=== PATIENT | male | born 1945 | race Caucasian/White ===

== ENCOUNTER 2017-08-18 06:43 | Inpatient (IN) | payer MEDICARE, OTHER ==
[~2017-08-18] VITALS: Ht 177.8 cm; Wt 107.2 kg
[~2017-08-18 06:43] MED LIST: AMLO5 PO; ASPI81CH PO; BENAML10/2 PO; BENAML10/5 PO; BISO5 PO; Bystolic20 MG PO; CARV6.25 PO; CHLO25B PO; CLON.1 PO; HYDCHL12.5 PO; HYDCHL25 PO; HYDRA25 PO; LEVSOD100 PO; LOSA50 PO; LOSARTAN POTAS100 MG PO; LOSHYD100 PO; METO50 PO; NEBI10 PO; NEBI5 PO; NITR.6SL SL; OMEP20ER PO; QUIN10 PO; SULTRIDS PO; VALS80 PO
[2017-08-18 07:12] LABS: BASOPHILS ABSOLUTE AUTO 0.02 K/mm3 (0.00-0.23); BASOPHILS PERCENT AUTO 0 % (0-2); EOSINOPHILS ABSOLUTE AUTO 0.17 K/mm3 (0.00-0.68); EOSINOPHILS PERCENT AUTO 3 % (0-6); Hematocrit 42.7 % (37.0-53.0); Hemoglobin 14.7 g/dL (13.5-17.5); IMMATURE GRAN ABSOLUTE AUTO 0.01 K/mm3 (0.00-0.10); IMMATURE GRAN PERCENT AUTO 0 % (0-1); LYMPHOCYTES ABSOLUTE AUTO 3.57 K/mm3 (0.84-5.20); LYMPHOCYTES PERCENT AUTO 52 % (21-46); MONOCYTES ABSOLUTE AUTO 0.77 K/mm3 (0.16-1.47); MONOCYTES PERCENT AUTO 11 % (4-13); Mean Corpuscular HGB 33.4 pg (26.0-34.0); Mean Corpuscular HGB Conc 34.4 g/dL (31.5-36.5); Mean Corpuscular Volume 97 fL (80-100); Mean Platelet Volume 11.1 fL (9.1-12.4); NEUTROPHILS ABSOLUTE AUTO 2.39 K/mm3 (1.96-9.15); NEUTROPHILS PERCENT AUTO 35 % (41-73); Platelet Count 171 K/mm3 (150-400); RDW Coefficient Variation 13.5 % (11.7-14.2); RDW Standard Deviation 48.6 fL (35.1-46.3); White Blood Cell Count 6.93 K/mm3 (4.00-11.30)
[2017-08-18 07:34] LABS: Alanine Aminotransfer (ALT/SGP 68 U/L (12-78); Albumin, Blood 4.2 g/dL (3.4-5.0); Alk Phos 48 U/L (50-136); Anion Gap 8 mmol/L (6-16); Aspartate Aminotrans (AST/SGOT 32 U/L (12-37); Bilirubin, Total 0.4 mg/dL (0.1-1.0); Blood Urea Nitrogen 32 mg/dL (8-24); Bun/Creatinine Ratio 26.7 (12.0-20.0); CO2, Blood 26 mmol/L (21-32); Calcium, Blood 9.2 mg/dL (8.5-10.1); Chloride, Blood 105 mmol/L (98-108); Globulin, Blood 4.2 g/dL (2.2-4.0); Glomerular Filtration Rate >60 (60-); Glucose, Blood 125 mg/dL (70-99); Potassium, Blood 3.6 mmol/L (3.5-5.5); Sodium, Blood 139 mmol/L (136-145); Total Protein, Blood 8.4 g/dL (6.4-8.2); Troponin I <0.015 ng/mL (0.000-0.040)
[2017-08-18 07:45] LABS: Calcium, Ionized (POC) 1.15 mmol/L (1.10-1.46); Chloride (POC) 104 mmol/L (98-108); Creatinine (POC) 1.3 mg/dL (0.8-1.3); Glucose (ISTAT POC) 120 mg/dL (70-99); Hemoglobin (POC) 13.6 g/dL (13.5-17.5); Potassium (POC) 3.6 mmol/L (3.5-5.5); Sodium (POC) 142 mmol/L (135-148); Total CO2 (POC) 23 mmol/L (21-32)
[2017-08-18] MEDS ORDERED: UBIQUINOL100 MG PO (16:13)
[2017-08-18] MEDS ORDERED: FISH OIL 1,0001 EAC1 PO (16:13)
[2017-08-18] MEDS ORDERED: ERGO400 PO (16:16)
[2017-08-18] MEDS ORDERED: MEN 50 PLUS MU1 EACH PO (16:17)
[2017-08-19 02:47] LABS: BASOPHILS ABSOLUTE AUTO 0.02 K/mm3 (0.00-0.23); BASOPHILS PERCENT AUTO 0 % (0-2); EOSINOPHILS ABSOLUTE AUTO 0.14 K/mm3 (0.00-0.68); EOSINOPHILS PERCENT AUTO 2 % (0-6); Hematocrit 42.5 % (37.0-53.0); Hemoglobin 14.3 g/dL (13.5-17.5); IMMATURE GRAN ABSOLUTE AUTO 0.01 K/mm3 (0.00-0.10); IMMATURE GRAN PERCENT AUTO 0 % (0-1); LYMPHOCYTES PERCENT AUTO 50 % (21-46); MONOCYTES ABSOLUTE AUTO 0.81 K/mm3 (0.16-1.47); MONOCYTES PERCENT AUTO 14 % (4-13); Mean Corpuscular HGB Conc 33.6 g/dL (31.5-36.5); Mean Corpuscular Volume 98 fL (80-100); Mean Platelet Volume 10.5 fL (9.1-12.4); NEUTROPHILS ABSOLUTE AUTO 1.96 K/mm3 (1.96-9.15); NEUTROPHILS PERCENT AUTO 34 % (41-73); Platelet Count 156 K/mm3 (150-400); RDW Coefficient Variation 13.6 % (11.7-14.2); Red Blood Cell Count 4.33 M/mm3 (4.30-5.90); White Blood Cell Count 5.84 K/mm3 (4.00-11.30)
[2017-08-19 03:02] LABS: Anion Gap 7 mmol/L (6-16); Blood Urea Nitrogen 33 mg/dL (8-24); Bun/Creatinine Ratio 31.7 (12.0-20.0); CO2, Blood 26 mmol/L (21-32); Calcium, Blood 8.7 mg/dL (8.5-10.1); Chloride, Blood 109 mmol/L (98-108); Creatinine, Blood 1.04 mg/dL (0.60-1.20); Glomerular Filtration Rate >60 (60-); Glucose, Blood 130 mg/dL (70-99); Potassium, Blood 3.7 mmol/L (3.5-5.5); Sodium, Blood 142 mmol/L (136-145)
[2018-07-14] MEDS ORDERED: TORSE20 PO (03:19)
[2018-07-14] MEDS ORDERED: SPIR25 PO (03:19)
[2018-07-14] MEDS ORDERED: Prednisone20 MG PO (04:16)
== END 2017-08-19 16:11 | disposition home or self-care (01) | DRG 313 ==
LOC: ER 06:43 → ERHOLD 06:44 → MEDS 14:37
PROVIDERS: Emergency Medicine; Family Medicine
DX: R07.89 Other chest pain (principal); I25.10 Atherosclerotic heart disease of native coronary artery without angina pectoris; E03.9 Hypothyroidism, unspecified; I10 Essential (primary) hypertension; I25.2 Old myocardial infarction; E29.1 Testicular hypofunction; K27.9 Peptic ulcer, site unspecified, unspecified as acute or chronic, without hemorrhage or perforation; E66.9 Obesity, unspecified; Z68.32 Body mass index [BMI] 32.0-32.9, adult; R01.1 Cardiac murmur, unspecified; Z95.1 Presence of aortocoronary bypass graft; Z95.2 Presence of prosthetic heart valve; Z79.82 Long term (current) use of aspirin; Z79.899 Other long term (current) drug therapy
CPT/HCPCS: 36415; 71046; 71275; 74175; 76705; 80047; 80048; 80053; 82947; 83690; 84484; 85014; 85025; 85651; 93005; 93010; 94660; 94762; 96374; 96375; 99285; J1170; J1650; J2270; J2405; Q9967

== ENCOUNTER 2018-04-09 04:19 | Emergency (ER) | payer MEDICARE, OTHER ==
[~2018-04-09] VITALS: Ht 175.3 cm; Wt 102.1 kg
[~2018-04-09 04:19] MED LIST changes: +ERGO400 PO; +FISH OIL 1,0001 EAC1 PO; +MEN 50 PLUS MU1 EACH PO; +UBIQUINOL100 MG PO
[2018-04-09] MEDS ORDERED: CHOL10002 PO (04:38)
[2018-04-09 05:10] LABS: BASOPHILS ABSOLUTE AUTO 0.05 K/mm3 (0.00-0.23); BASOPHILS PERCENT AUTO 1 % (0-2); EOSINOPHILS PERCENT AUTO 3 % (0-6); Hematocrit 43.6 % (37.0-53.0); Hemoglobin 14.8 g/dL (13.5-17.5); IMMATURE GRAN ABSOLUTE AUTO 0.02 K/mm3 (0.00-0.10); IMMATURE GRAN PERCENT AUTO 0 % (0-1); LYMPHOCYTES ABSOLUTE AUTO 2.55 K/mm3 (0.84-5.20); LYMPHOCYTES PERCENT AUTO 42 % (21-46); MONOCYTES ABSOLUTE AUTO 0.64 K/mm3 (0.16-1.47); MONOCYTES PERCENT AUTO 11 % (4-13); Mean Corpuscular HGB 33.3 pg (26.0-34.0); Mean Corpuscular HGB Conc 33.9 g/dL (31.5-36.5); Mean Corpuscular Volume 98 fL (80-100); Mean Platelet Volume 11.4 fL (9.1-12.4); NEUTROPHILS ABSOLUTE AUTO 2.57 K/mm3 (1.96-9.15); NEUTROPHILS PERCENT AUTO 43 % (41-73); Platelet Count 154 K/mm3 (150-400); RDW Coefficient Variation 13.7 % (11.7-14.2); RDW Standard Deviation 49.1 fL (35.1-46.3); Red Blood Cell Count 4.45 M/mm3 (4.30-5.90); White Blood Cell Count 6.03 K/mm3 (4.00-11.30)
[2018-04-09 05:25] LABS: Alanine Aminotransfer (ALT/SGP 64 U/L (12-78); Albumin, Blood 3.9 g/dL (3.4-5.0); Alk Phos 47 U/L (50-136); Anion Gap 11 mmol/L (6-16); Aspartate Aminotrans (AST/SGOT 30 U/L (12-37); Bilirubin, Total 0.3 mg/dL (0.1-1.0); Blood Urea Nitrogen 16 mg/dL (8-24); Bun/Creatinine Ratio 20.7 (12.0-20.0); CO2, Blood 23 mmol/L (21-32); Calcium, Blood 8.6 mg/dL (8.5-10.1); Chloride, Blood 107 mmol/L (98-108); Creatinine, Blood 0.77 mg/dL (0.60-1.20); Glomerular Filtration Rate >60 (60-); Glucose, Blood 129 mg/dL (70-99); Potassium, Blood 3.8 mmol/L (3.5-5.5); Sodium, Blood 141 mmol/L (136-145); Total Protein, Blood 7.9 g/dL (6.4-8.2); Troponin I 0.022 ng/mL (0.000-0.040)
[2018-04-09 05:26] LABS: International Normalized Ratio 1.01; Prothrombin Time Results 10.4 Sec (9.7-11.5)
== END 2018-04-09 06:30 | disposition home or self-care (01) ==
LOC: ER 04:19
PROVIDERS: Emergency Medicine
DX: I49.1 Atrial premature depolarization (principal); I10 Essential (primary) hypertension; Z88.8 Allergy status to other drugs, medicaments and biological substances; Z88.1 Allergy status to other antibiotic agents; Z88.0 Allergy status to penicillin; Z79.899 Other long term (current) drug therapy
CPT/HCPCS: 71046; 80053; 83880; 84484; 85025; 85610; 85730; 93005; 93010; 99285-25

== ENCOUNTER 2018-12-03 18:31 | Emergency (ER) | payer MEDICARE, OTHER ==
[~2018-12-03] VITALS: Ht 175.3 cm; Wt 104.3 kg
[~2018-12-03 18:31] MED LIST changes: +CHOL10002 PO; +Prednisone20 MG PO; +SPIR25 PO; +TORSE20 PO
[2018-12-03] MEDS ORDERED: CHLO25B PO (18:50)
[2018-12-03 19:12] LABS: BASOPHILS ABSOLUTE AUTO 0.05 K/mm3 (0.00-0.23); BASOPHILS PERCENT AUTO 1 % (0-2); EOSINOPHILS ABSOLUTE AUTO 0.14 K/mm3 (0.00-0.68); EOSINOPHILS PERCENT AUTO 2 % (0-6); Hematocrit 41.3 % (37.0-53.0); Hemoglobin 13.9 g/dL (13.5-17.5); IMMATURE GRAN ABSOLUTE AUTO 0.02 K/mm3 (0.00-0.10); IMMATURE GRAN PERCENT AUTO 0 % (0-1); LYMPHOCYTES ABSOLUTE AUTO 2.56 K/mm3 (0.84-5.20); LYMPHOCYTES PERCENT AUTO 35 % (21-46); MONOCYTES ABSOLUTE AUTO 0.62 K/mm3 (0.16-1.47); MONOCYTES PERCENT AUTO 9 % (4-13); Mean Corpuscular HGB 33.4 pg (26.0-34.0); Mean Corpuscular HGB Conc 33.7 g/dL (31.5-36.5); Mean Corpuscular Volume 99 fL (80-100); Mean Platelet Volume 11.6 fL (9.1-12.4); NEUTROPHILS ABSOLUTE AUTO 3.85 K/mm3 (1.96-9.15); NEUTROPHILS PERCENT AUTO 53 % (41-73); Platelet Count 176 K/mm3 (150-400); RDW Standard Deviation 51.1 fL (35.1-46.3); Red Blood Cell Count 4.16 M/mm3 (4.30-5.90); White Blood Cell Count 7.24 K/mm3 (4.00-11.30)
[2018-12-03 19:49] LABS: Alanine Aminotransfer (ALT/SGP 29 U/L (12-78); Albumin, Blood 4.1 g/dL (3.4-5.0); Albumin/Globulin Ratio 1.1 (0.8-1.8); Alk Phos 44 U/L (50-136); Anion Gap 4 mmol/L (6-16); Aspartate Aminotrans (AST/SGOT 23 U/L (12-37); Bilirubin, Total 0.4 mg/dL (0.1-1.0); Blood Urea Nitrogen 14 mg/dL (8-24); Bun/Creatinine Ratio 18.8 (12.0-20.0); CO2, Blood 28 mmol/L (21-32); Calcium, Blood 8.8 mg/dL (8.5-10.1); Chloride, Blood 108 mmol/L (98-108); Creatinine, Blood 0.74 mg/dL (0.60-1.20); Globulin, Blood 3.7 g/dL (2.2-4.0); Glomerular Filtration Rate >60 (60-); Glucose, Blood 178 mg/dL (70-99); Potassium, Blood 3.6 mmol/L (3.5-5.5); Sodium, Blood 140 mmol/L (136-145); Total Protein, Blood 7.8 g/dL (6.4-8.2)
[2018-12-03 19:54] LABS: Source, Urine Clean Catch
[2018-12-03 20:07] LABS: Bilirubin, Urine Neg (Neg); Blood, Urine 2+ (Neg); Glucose Qualitative, Urine Neg (Neg); Ketones, Urine Neg (Neg); Leukocyte Esterase, Urine Neg (Neg); Nitrite, Urine Neg (Neg); Protein, Urine Neg (Neg); Urobilinogen, Urine NORM (Normal)
[2018-12-03 20:10] LABS: Appearance, Urine Clear (Clear); Color, Urine Yellow (P-Yellow)
[2018-12-03 20:17] LABS: Bacteria Few /hpf; Red Blood Cells, Urine 0-2 /hpf (0-2); Squamous Epithelial Cells Not Seen /hpf (Few); White Blood Cells, Urine 0-2 /hpf (0-5)
[2018-12-03] MEDS ORDERED: Magnesium Citr296 ML PO (23:40)
== END 2018-12-04 | disposition home or self-care (01) ==
LOC: ER 18:31
PROVIDERS: Emergency Medicine
DX: K59.00 Constipation, unspecified (principal); Z88.0 Allergy status to penicillin; Z88.8 Allergy status to other drugs, medicaments and biological substances; Z88.1 Allergy status to other antibiotic agents; Z79.899 Other long term (current) drug therapy; I10 Essential (primary) hypertension; I25.2 Old myocardial infarction
CPT/HCPCS: 36415; 74177; 80053; 81001; 83690; 85025; 96361; 96374-59; 96375; 99284-25; J1885; J3010; J7030; Q9967

== ENCOUNTER 2019-01-01 13:43 | Day surgery (SDC) | payer MEDICARE, OTHER ==
[~2019-01-01] VITALS: Ht 175.3 cm; Wt 107.0 kg
[~2019-01-01 13:43] MED LIST changes: +Magnesium Citr296 ML PO
== END 2019-01-01 17:25 | disposition home or self-care (01) ==
LOC: ORSCSDS 13:43
PROVIDERS: Internal Medicine Gastroenterology
PROC: 0DBL8ZX Excision of Transverse Colon, Via Natural or Artificial Opening Endoscopic, Diagnostic (ICD-10-PCS; principal; 2019-01-01 15:00)
PROC: 0DB68ZX Excision of Stomach, Via Natural or Artificial Opening Endoscopic, Diagnostic (ICD-10-PCS; principal; 2019-01-01 15:00)
PROC: 0D758ZZ Dilation of Esophagus, Via Natural or Artificial Opening Endoscopic (ICD-10-PCS; principal; 2019-01-01 15:00)
DX: R19.4 Change in bowel habit (principal); R10.31 Right lower quadrant pain; K25.9 Gastric ulcer, unspecified as acute or chronic, without hemorrhage or perforation; K31.7 Polyp of stomach and duodenum; D12.3 Benign neoplasm of transverse colon; R13.14 Dysphagia, pharyngoesophageal phase; K57.30 Diverticulosis of large intestine without perforation or abscess without bleeding; K64.8 Other hemorrhoids; K22.2 Esophageal obstruction; K44.9 Diaphragmatic hernia without obstruction or gangrene; G47.33 Obstructive sleep apnea (adult) (pediatric); K75.81 Nonalcoholic steatohepatitis (NASH); I12.9 Hypertensive chronic kidney disease with stage 1 through stage 4 chronic kidney disease, or unspecified chronic kidney disease; N18.9 Chronic kidney disease, unspecified; E03.9 Hypothyroidism, unspecified; E66.01 Morbid (severe) obesity due to excess calories; Z68.36 Body mass index [BMI] 36.0-36.9, adult; Z79.899 Other long term (current) drug therapy
CPT/HCPCS: 82947; 88305; J2704; J7120

== ENCOUNTER 2019-08-15 09:25 | Day surgery (SDC) | payer MEDICARE, OTHER ==
[~2019-08-15] VITALS: Ht 177.8 cm; Wt 98.0 kg
== END 2019-08-15 11:00 | disposition home or self-care (01) ==
LOC: ORSCSDS 09:25
PROVIDERS: Internal Medicine Gastroenterology
PROC: 0DB98ZX Excision of Duodenum, Via Natural or Artificial Opening Endoscopic, Diagnostic (ICD-10-PCS; principal; 2019-08-15 10:45)
PROC: 0DB48ZX Excision of Esophagogastric Junction, Via Natural or Artificial Opening Endoscopic, Diagnostic (ICD-10-PCS; principal; 2019-08-15 10:45)
PROC: 0DB68ZX Excision of Stomach, Via Natural or Artificial Opening Endoscopic, Diagnostic (ICD-10-PCS; principal; 2019-08-15 10:45)
PROC: 0D757ZZ Dilation of Esophagus, Via Natural or Artificial Opening (ICD-10-PCS; principal; 2019-08-15 10:45)
DX: R93.3 Abnormal findings on diagnostic imaging of other parts of digestive tract (principal); K29.70 Gastritis, unspecified, without bleeding; K21.9 Gastro-esophageal reflux disease without esophagitis; R10.84 Generalized abdominal pain; K22.2 Esophageal obstruction; K44.9 Diaphragmatic hernia without obstruction or gangrene; I12.9 Hypertensive chronic kidney disease with stage 1 through stage 4 chronic kidney disease, or unspecified chronic kidney disease; E11.22 Type 2 diabetes mellitus with diabetic chronic kidney disease; N18.9 Chronic kidney disease, unspecified; I25.10 Atherosclerotic heart disease of native coronary artery without angina pectoris; G47.33 Obstructive sleep apnea (adult) (pediatric); Z79.899 Other long term (current) drug therapy
CPT/HCPCS: 88305; 88342; J2704; J7120

== ENCOUNTER → 2019-12-11 | Outpatient (CLI) | payer MEDICARE, OTHER ==
[2019-12-11 16:56] LABS: BASOPHILS ABSOLUTE AUTO 0.02 K/mm3 (0.00-0.23); BASOPHILS PERCENT AUTO 0 % (0-2); EOSINOPHILS ABSOLUTE AUTO 0.04 K/mm3 (0.00-0.68); EOSINOPHILS PERCENT AUTO 0 % (0-6); Hematocrit 41.1 % (37.0-53.0); IMMATURE GRAN ABSOLUTE AUTO 0.05 K/mm3 (0.00-0.10); IMMATURE GRAN PERCENT AUTO 0 % (0-1); LYMPHOCYTES ABSOLUTE AUTO 1.53 K/mm3 (0.84-5.20); LYMPHOCYTES PERCENT AUTO 14 % (21-46); MONOCYTES ABSOLUTE AUTO 1.46 K/mm3 (0.16-1.47); MONOCYTES PERCENT AUTO 13 % (4-13); Mean Corpuscular HGB 33.1 pg (26.0-34.0); Mean Corpuscular HGB Conc 34.1 g/dL (31.5-36.5); Mean Corpuscular Volume 97 fL (80-100); Mean Platelet Volume 12.3 fL (9.1-12.4); NEUTROPHILS ABSOLUTE AUTO 8.02 K/mm3 (1.96-9.15); NEUTROPHILS PERCENT AUTO 72 % (41-73); Platelet Count 156 K/mm3 (150-400); RDW Coefficient Variation 12.9 % (11.7-14.2); Red Blood Cell Count 4.23 M/mm3 (4.30-5.90); White Blood Cell Count 11.12 K/mm3 (4.00-11.30)
[2019-12-11 17:10] LABS: Anion Gap 7 mmol/L (6-16); Blood Urea Nitrogen 16 mg/dL (8-24); Bun/Creatinine Ratio 18.6 (12.0-20.0); CO2, Blood 22 mmol/L (21-32); Calcium, Blood 8.4 mg/dL (8.5-10.1); Chloride, Blood 106 mmol/L (98-108); Creatinine, Blood 0.86 mg/dL (0.60-1.20); Glomerular Filtration Rate >60 (60-); Glucose, Blood 107 mg/dL (70-99); Sodium, Blood 135 mmol/L (136-145)
== END | disposition home or self-care (01) ==
LOC: LAB SHORT 16:41 → LAB 16:41
PROVIDERS: Physician Assistant
DX: R50.9 Fever, unspecified (principal); R31.9 Hematuria, unspecified
CPT/HCPCS: 80048; 85025; 87086

== ENCOUNTER → 2021-04-08 | Outpatient (CLI) | payer MEDICARE, OTHER | LOC: LAB SHORT 12:27 | DX: R21 Rash and other nonspecific skin eruption (principal); D48.5 Neoplasm of uncertain behavior of skin | CPT/HCPCS: 88342 ==

== ENCOUNTER 2022-05-26 07:45 | Day surgery (SDC) | payer MEDICARE, OTHER ==
[~2022-05-26] VITALS: Ht 175.3 cm; Wt 93.9 kg
[2022-05-26] MEDS ORDERED: LEVSOD100 (08:05)
--- NOTE | 2022-05-26 09:00 | NUR ---
05/26/22 0900 Maria M Osullivan [facility] # [id number]
== END 2022-05-26 10:15 | disposition home or self-care (01) ==
LOC: ORSCSDS 07:45
PROVIDERS: Internal Medicine Gastroenterology
PROC: 0DBK8ZX Excision of Ascending Colon, Via Natural or Artificial Opening Endoscopic, Diagnostic (ICD-10-PCS; principal; 2022-05-26 09:00)
PROC: 0DBM8ZX Excision of Descending Colon, Via Natural or Artificial Opening Endoscopic, Diagnostic (ICD-10-PCS; principal; 2022-05-26 09:00)
PROC: 0DBL8ZX Excision of Transverse Colon, Via Natural or Artificial Opening Endoscopic, Diagnostic (ICD-10-PCS; principal; 2022-05-26 09:00)
PROC: 0DJ08ZZ Inspection of Upper Intestinal Tract, Via Natural or Artificial Opening Endoscopic (ICD-10-PCS; principal; 2022-05-26 09:00)
PROC: 0DBN8ZX Excision of Sigmoid Colon, Via Natural or Artificial Opening Endoscopic, Diagnostic (ICD-10-PCS; principal; 2022-05-26 09:00)
DX: R10.9 Unspecified abdominal pain (principal); Z86.010 Personal history of colon polyps; D12.2 Benign neoplasm of ascending colon; D12.3 Benign neoplasm of transverse colon; D12.4 Benign neoplasm of descending colon; K64.4 Residual hemorrhoidal skin tags; E11.22 Type 2 diabetes mellitus with diabetic chronic kidney disease; I12.9 Hypertensive chronic kidney disease with stage 1 through stage 4 chronic kidney disease, or unspecified chronic kidney disease; N18.9 Chronic kidney disease, unspecified; K76.0 Fatty (change of) liver, not elsewhere classified; E03.9 Hypothyroidism, unspecified; E29.1 Testicular hypofunction; G47.33 Obstructive sleep apnea (adult) (pediatric); I25.10 Atherosclerotic heart disease of native coronary artery without angina pectoris; Z95.2 Presence of prosthetic heart valve; Z79.899 Other long term (current) drug therapy
CPT/HCPCS: 82947; 88305; J2704; J7120

== ENCOUNTER 2022-11-22 03:27 | Observation (INO) | payer MEDICARE, OTHER ==
[~2022-11-22] VITALS: Ht 175.3 cm; Wt 88.8 kg
[~2022-11-22 03:27] MED LIST changes: +LEVSOD112 PO
[2022-11-22 04:19] LABS: Albumin, Blood 3.8 g/dL (3.4-5.0); Albumin/Globulin Ratio 1.2 (0.8-1.8); Bilirubin, Total 0.6 mg/dL (0.1-1.0); Bun/Creatinine Ratio 25.4 (12.0-20.0); Calcium, Blood 8.4 mg/dL (8.5-10.1); Creatinine, Blood 0.83 mg/dL (0.60-1.20); Globulin, Blood 3.3 g/dL (2.2-4.0); Potassium, Blood 4.2 mmol/L (3.5-5.5); Total Protein, Blood 7.1 g/dL (6.4-8.2)
[2022-11-22 04:41] LABS: BASOPHILS ABSOLUTE AUTO 0.04 K/mm3 (0.00-0.23); BASOPHILS PERCENT AUTO 1 % (0-2); EOSINOPHILS ABSOLUTE AUTO 0.15 K/mm3 (0.00-0.68); EOSINOPHILS PERCENT AUTO 2 % (0-6); Hematocrit 35.9 % (37.0-53.0); Hemoglobin 11.8 g/dL (13.5-17.5); IMMATURE GRAN ABSOLUTE AUTO 0.03 K/mm3 (0.00-0.10); IMMATURE GRAN PERCENT AUTO 0 % (0-1); LYMPHOCYTES ABSOLUTE AUTO 1.32 K/mm3 (0.84-5.20); LYMPHOCYTES PERCENT AUTO 19 % (21-46); MONOCYTES ABSOLUTE AUTO 0.58 K/mm3 (0.16-1.47); MONOCYTES PERCENT AUTO 8 % (4-13); Mean Corpuscular HGB 32.3 pg (26.0-34.0); Mean Corpuscular HGB Conc 32.9 g/dL (31.5-36.5); Mean Corpuscular Volume 98 fL (80-100); NEUTROPHILS ABSOLUTE AUTO 4.76 K/mm3 (1.96-9.15); NEUTROPHILS PERCENT AUTO 69 % (41-73); Platelet Count 169 K/mm3 (150-400); RDW Coefficient Variation 15.7 % (11.7-14.2); Red Blood Cell Count 3.65 M/mm3 (4.30-5.90); White Blood Cell Count 6.88 K/mm3 (4.00-11.30)
[2022-11-22 07:30] VITALS: BP 145/98
[2022-11-22 15:49] VITALS: BP 154/83
--- NOTE | 2022-11-22 15:53 | NUR ---
Upon receiving a referral for spiritual care, I visited the patient. Patient is lying in bed and alert. Patient's spouse, Gabriela, is bedside. They share about patient's medical history, about their Jehovah Witness belief system and about their many adventures. 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 They admit to the struggles of increased limitations and physical pain. I ask if they would like me to call the [facility] Liaison Committee on their behalf and they joyfully endorse this request. I call Lenard Johnston from this committee who graciously agreed to visit the patient. I normalized their experience, reinforce helpful attitudes and practices and provide therapeutic listening. Patient and Gabriela responded well and showed signs of an elevated mood. I will continue to remain available. to patient and family.
--- NOTE | 2022-11-22 16:29 | NUR ---
PATIENT IS ALERT AND ORIENTED AND COOPERATIVE WITH CARE. PATIENT IS VOIDING IN THE URINAL. PATIENT STARTED THE STRESS TEST TODAY. ORDERS FOR NO CAFFEINE AFTER DINNER. PATIENT REPORTS FEELING BETTER COMPARED TO THIS MORNING IN THE ER. NO C/O DYSPNEA OR ORTHOPNEA. PT IS AMBULATORY IN HIS ROOM. BED ALARM IS ON. IS AT THE BEDSIDE. WILL CONTINUE TO MONITOR
[2022-11-22 18:24] VITALS: BP 151/83
[2022-11-22 19:38] VITALS: BP 158/88
--- NOTE | 2022-11-22 22:28 | NUR ---
NOTIFIED HOSPITALIST SLIGHT 1ST DEG. HB REPORTED BY TELEMETRY. HOSPITALIST INFORMED. PT HAS NO S/SX. PT IN ROOM CHATTING WITH VISITOR, DENIES PAIN OR DISCOMFORT. ORDERS ARE TO CONTINUE TO MONITOR
[2022-11-23 03:17] VITALS: BP 151/99
--- NOTE | 2022-11-23 04:08 | NUR ---
SHIFT SUMMARY ADMITTED FOR CHF. FULL CODE. PLAN IS FOR STRESS TEST PART 2 TODAY. PT HAS BEEN NPO SINCE MIDNIGHT. NO CAFFEINE PREVIOUS. TELEMETRY: NSR W/1ST DEG HB @ 76 BPM. STRICT I&O'S. DAILY WT. ON RA. A&O X4. HX: PA, AAA - STATUS POST REPAIR, CABG, PIG VALVE REPLACEMENT, AFIB W/RVR.
[2022-11-23 05:41] LABS: BASOPHILS ABSOLUTE AUTO 0.04 K/mm3 (0.00-0.23); BASOPHILS PERCENT AUTO 1 % (0-2); EOSINOPHILS ABSOLUTE AUTO 0.21 K/mm3 (0.00-0.68); EOSINOPHILS PERCENT AUTO 3 % (0-6); Hematocrit 35.5 % (37.0-53.0); Hemoglobin 12.1 g/dL (13.5-17.5); IMMATURE GRAN ABSOLUTE AUTO 0.02 K/mm3 (0.00-0.10); IMMATURE GRAN PERCENT AUTO 0 % (0-1); LYMPHOCYTES ABSOLUTE AUTO 1.62 K/mm3 (0.84-5.20); LYMPHOCYTES PERCENT AUTO 25 % (21-46); MONOCYTES ABSOLUTE AUTO 0.57 K/mm3 (0.16-1.47); MONOCYTES PERCENT AUTO 9 % (4-13); Mean Corpuscular HGB 32.7 pg (26.0-34.0); Mean Corpuscular HGB Conc 34.1 g/dL (31.5-36.5); Mean Corpuscular Volume 96 fL (80-100); NEUTROPHILS ABSOLUTE AUTO 4.08 K/mm3 (1.96-9.15); NEUTROPHILS PERCENT AUTO 62 % (41-73); Platelet Count 136 K/mm3 (150-400); RDW Coefficient Variation 15.6 % (11.7-14.2); RDW Standard Deviation 54.2 fL (35.1-46.3); White Blood Cell Count 6.54 K/mm3 (4.00-11.30)
[2022-11-23 05:50] LABS: Mean Platelet Volume 12.9 fL (9.1-12.4)
[2022-11-23 05:59] LABS: Albumin, Blood 3.6 g/dL (3.4-5.0); Albumin/Globulin Ratio 1.1 (0.8-1.8); Bilirubin, Total 0.8 mg/dL (0.1-1.0); Bun/Creatinine Ratio 29.7 (12.0-20.0); Calcium, Blood 8.8 mg/dL (8.5-10.1); Creatinine, Blood 0.77 mg/dL (0.60-1.20); Globulin, Blood 3.2 g/dL (2.2-4.0); Magnesium, Blood 2.1 mg/dL (1.6-2.4); Potassium, Blood 3.6 mmol/L (3.5-5.5); Total Protein, Blood 6.8 g/dL (6.4-8.2)
[2022-11-23 07:46] VITALS: BP 158/84
[2022-11-23 15:50] VITALS: BP 154/84
[2022-11-23] MEDS ORDERED: FURO20 PO (17:35)
--- NOTE | 2022-11-23 18:43 | NUR ---
PT DISCHARGED 1800 WITH DC INSTRUCTIONS. ESCORTED OUT TO PRIVATE CAR VIA WHEELCHAIR. RX TO [facility]. PLANS TO FOLLOW UP WITH PCP AND CARDIO.
== END 2022-11-23 18:08 | disposition home or self-care (01) ==
LOC: ER 03:27 → MEDS 03:28 → ERHOLD 03:28 → MEDS 07:24
PROVIDERS: Emergency Medicine; ADMIT Student in an Organized Health Care Education/Training Program
DX: I48.91 Unspecified atrial fibrillation (principal); R07.9 Chest pain, unspecified; I11.0 Hypertensive heart disease with heart failure; I50.31 Acute diastolic (congestive) heart failure; E03.9 Hypothyroidism, unspecified; I25.10 Atherosclerotic heart disease of native coronary artery without angina pectoris; R73.9 Hyperglycemia, unspecified; D64.9 Anemia, unspecified; Z95.3 Presence of xenogenic heart valve; Z95.1 Presence of aortocoronary bypass graft; Z88.0 Allergy status to penicillin; Z88.8 Allergy status to other drugs, medicaments and biological substances; Z79.899 Other long term (current) drug therapy
CPT/HCPCS: 36415; 71260; 78452; 80053; 83036; 83735; 83880; 84484; 85025; 93005; 93010; 93017; 93306; 96372; 96374-59; 96376; 99285-25; A9270; A9500; G0378; J1650; J1940; J2785; Q9967

== ENCOUNTER 2022-11-25 07:03 | Emergency (ER) | payer MEDICARE, OTHER ==
[~2022-11-25] VITALS: Ht 170.2 cm; Wt 75.8 kg
[~2022-11-25 07:03] MED LIST changes: +FURO20 PO
[2022-11-25 08:00] LABS: BASOPHILS ABSOLUTE AUTO 0.04 K/mm3 (0.00-0.23); BASOPHILS PERCENT AUTO 1 % (0-2); EOSINOPHILS ABSOLUTE AUTO 0.28 K/mm3 (0.00-0.68); EOSINOPHILS PERCENT AUTO 5 % (0-6); Hematocrit 35.7 % (37.0-53.0); Hemoglobin 11.7 g/dL (13.5-17.5); IMMATURE GRAN ABSOLUTE AUTO 0.04 K/mm3 (0.00-0.10); IMMATURE GRAN PERCENT AUTO 1 % (0-1); LYMPHOCYTES ABSOLUTE AUTO 1.34 K/mm3 (0.84-5.20); LYMPHOCYTES PERCENT AUTO 24 % (21-46); MONOCYTES ABSOLUTE AUTO 0.44 K/mm3 (0.16-1.47); MONOCYTES PERCENT AUTO 8 % (4-13); Mean Corpuscular HGB 32.4 pg (26.0-34.0); Mean Corpuscular HGB Conc 32.8 g/dL (31.5-36.5); Mean Corpuscular Volume 99 fL (80-100); NEUTROPHILS ABSOLUTE AUTO 3.37 K/mm3 (1.96-9.15); NEUTROPHILS PERCENT AUTO 61 % (41-73); Platelet Count 128 K/mm3 (150-400); RDW Coefficient Variation 15.4 % (11.7-14.2); RDW Standard Deviation 56.2 fL (35.1-46.3); Red Blood Cell Count 3.61 M/mm3 (4.30-5.90); White Blood Cell Count 5.51 K/mm3 (4.00-11.30)
[2022-11-25 08:03] LABS: Mean Platelet Volume 12.4 fL (9.1-12.4)
[2022-11-25 08:21] LABS: Albumin, Blood 4.1 g/dL (3.4-5.0); Albumin/Globulin Ratio 1.1 (0.8-1.8); Bilirubin, Total 0.6 mg/dL (0.1-1.0); Bun/Creatinine Ratio 34.3 (12.0-20.0); Calcium, Blood 8.5 mg/dL (8.5-10.1); Creatinine, Blood 0.79 mg/dL (0.60-1.20); Globulin, Blood 3.6 g/dL (2.2-4.0); Magnesium, Blood 2.2 mg/dL (1.6-2.4); Potassium, Blood 3.8 mmol/L (3.5-5.5); Total Protein, Blood 7.7 g/dL (6.4-8.2)
[2022-11-25 11:30] VITALS: BP 135/83
== END 2022-11-25 11:49 | disposition home or self-care (01) ==
LOC: ER 07:03
PROVIDERS: Student in an Organized Health Care Education/Training Program
DX: I50.30 Unspecified diastolic (congestive) heart failure (principal); Z88.8 Allergy status to other drugs, medicaments and biological substances; Z88.0 Allergy status to penicillin; Z88.1 Allergy status to other antibiotic agents; Z79.899 Other long term (current) drug therapy; I10 Essential (primary) hypertension; I25.2 Old myocardial infarction; E03.9 Hypothyroidism, unspecified
CPT/HCPCS: 71046; 80053; 83735; 83880; 84484; 85025; 93005; 93010; 96374; 99284-25; A9270; J1940

== ENCOUNTER 2023-03-17 08:57 | Emergency (ER) | payer MEDICARE, OTHER ==
[~2023-03-17] VITALS: Ht 177.8 cm; Wt 88.9 kg
[2023-03-17 09:32] LABS: BASOPHILS ABSOLUTE AUTO 0.04 K/mm3 (0.00-0.23); BASOPHILS PERCENT AUTO 1 % (0-2); EOSINOPHILS ABSOLUTE AUTO 0.25 K/mm3 (0.00-0.68); EOSINOPHILS PERCENT AUTO 3 % (0-6); Hematocrit 36.1 % (37.0-53.0); Hemoglobin 11.9 g/dL (13.5-17.5); IMMATURE GRAN ABSOLUTE AUTO 0.03 K/mm3 (0.00-0.10); IMMATURE GRAN PERCENT AUTO 0 % (0-1); LYMPHOCYTES ABSOLUTE AUTO 1.74 K/mm3 (0.84-5.20); LYMPHOCYTES PERCENT AUTO 23 % (21-46); MONOCYTES ABSOLUTE AUTO 0.52 K/mm3 (0.16-1.47); MONOCYTES PERCENT AUTO 7 % (4-13); Mean Corpuscular HGB 33.2 pg (26.0-34.0); Mean Corpuscular Volume 101 fL (80-100); NEUTROPHILS ABSOLUTE AUTO 4.85 K/mm3 (1.96-9.15); NEUTROPHILS PERCENT AUTO 65 % (41-73); Platelet Count 169 K/mm3 (150-400); RDW Coefficient Variation 16.1 % (11.7-14.2); RDW Standard Deviation 59.7 fL (35.1-46.3); Red Blood Cell Count 3.58 M/mm3 (4.30-5.90); White Blood Cell Count 7.43 K/mm3 (4.00-11.30)
[2023-03-17 09:43] LABS: Albumin, Blood 3.9 g/dL (3.4-5.0); Albumin/Globulin Ratio 1.1 (0.8-1.8); Bun/Creatinine Ratio 23.8 (12.0-20.0); Calcium, Blood 8.9 mg/dL (8.5-10.1); Creatinine, Blood 0.97 mg/dL (0.60-1.20); Globulin, Blood 3.7 g/dL (2.2-4.0); Potassium, Blood 4.6 mmol/L (3.5-5.5); Total Protein, Blood 7.6 g/dL (6.4-8.2)
[2023-03-17 11:30] VITALS: BP 148/83
== END 2023-03-17 11:40 | disposition home or self-care (01) ==
LOC: ER 08:57
PROVIDERS: Emergency Medicine
DX: R06.02 Shortness of breath (principal); I10 Essential (primary) hypertension; I25.2 Old myocardial infarction; E03.9 Hypothyroidism, unspecified; Z88.8 Allergy status to other drugs, medicaments and biological substances; Z88.1 Allergy status to other antibiotic agents; Z88.0 Allergy status to penicillin; Z79.899 Other long term (current) drug therapy
CPT/HCPCS: 71046; 80053; 83880; 85025; 93005; 93010; 99285-25

== ENCOUNTER 2023-04-07 20:55 | Inpatient (IN) | payer MEDICARE, OTHER ==
[~2023-04-07] VITALS: Ht 177.8 cm; Wt 90.1 kg
[2023-04-07 22:07] LABS: BASOPHILS ABSOLUTE AUTO 0.05 K/mm3 (0.00-0.23); BASOPHILS PERCENT AUTO 1 % (0-2); EOSINOPHILS ABSOLUTE AUTO 0.25 K/mm3 (0.00-0.68); EOSINOPHILS PERCENT AUTO 4 % (0-6); Hematocrit 33.7 % (37.0-53.0); Hemoglobin 11.3 g/dL (13.5-17.5); IMMATURE GRAN ABSOLUTE AUTO 0.03 K/mm3 (0.00-0.10); IMMATURE GRAN PERCENT AUTO 0 % (0-1); LYMPHOCYTES ABSOLUTE AUTO 1.69 K/mm3 (0.84-5.20); LYMPHOCYTES PERCENT AUTO 25 % (21-46); MONOCYTES ABSOLUTE AUTO 0.63 K/mm3 (0.16-1.47); MONOCYTES PERCENT AUTO 9 % (4-13); Mean Corpuscular HGB 32.8 pg (26.0-34.0); Mean Corpuscular HGB Conc 33.5 g/dL (31.5-36.5); Mean Corpuscular Volume 98 fL (80-100); Mean Platelet Volume 11.8 fL (9.1-12.4); NEUTROPHILS ABSOLUTE AUTO 4.22 K/mm3 (1.96-9.15); NEUTROPHILS PERCENT AUTO 62 % (41-73); Platelet Count 198 K/mm3 (150-400); RDW Coefficient Variation 15.3 % (11.7-14.2); RDW Standard Deviation 55.4 fL (35.1-46.3); Red Blood Cell Count 3.44 M/mm3 (4.30-5.90); White Blood Cell Count 6.87 K/mm3 (4.00-11.30)
[2023-04-07 22:31] LABS: Albumin/Globulin Ratio 1.2 (0.8-1.8); Bilirubin, Total 0.9 mg/dL (0.1-1.0); Calcium, Blood 8.8 mg/dL (8.5-10.1); Creatinine, Blood 1.15 mg/dL (0.60-1.20); Globulin, Blood 3.4 g/dL (2.2-4.0); Potassium, Blood 4.2 mmol/L (3.5-5.5); Total Protein, Blood 7.4 g/dL (6.4-8.2)
[2023-04-08] VITALS (60 sets, daily range): BP systolic 84–158; BP diastolic 47–111
[2023-04-08 04:32] LABS: Anti-Xa UFH, PHA Monitoring <0.10 IU/mL; International Normalized Ratio 1.08; Prothrombin Time Results 11.3 Sec (9.7-11.5)
[2023-04-08] MEDS ORDERED: FURO40 PO (07:34)
[2023-04-08] MEDS ORDERED: ASPIR 8181 M1 PO (07:36)
--- NOTE | 2023-04-08 07:40 | NUR ---
INITIAL ASSESSMENT PATIENT ARRIVED TO ICU AT 0712 FROM ER. PATIENT ALERT AND ORIENTED X 4, AFEBRILE. PATIENT DENIES ANY PAIN, INCLUDING CHEST PAIN OR PRESSURE. PATIENT WEAK; USES CANE. PATIENT STATES HE HAS BEEN "FEELING DIZZY WHEN HE STANDS UP". PATIENT SATTING 90% AND GREATER ON RA. LUNGS CLEAR T/O. PATIENT USES CPAP AT HS; TO BRING IN. PATIENT IN SR WITH BBB AND PROLONGED QT. HR 60S TO 70S. SBP 130S TO 140S. GI AND WNL. SKIN APPEARS C/D/I. HEPARIN INFUSING AT 15 UNITS/ KG/ HOUR. BED LOW, CALL LIGHT IN REACH. BED ALARM ON.
--- NOTE | 2023-04-08 12:05 | NUR ---
PATIENT AFEBRILE. PATIENT GIVEN PRN MORPHINE EARLIER FOR COMPLAINTS OF CHEST DISCOMFORT; PATIENT REPORTED RELIEF AFTER IV MORPHINE ADMINISTRATION. NO COMPLAINTS SINCE. HR IN THE 70S. SBP 1-TEENS TO 130S. NO OTHER ACUTE CHANGES TO NOTE ON AT THIS TIME.
--- NOTE | 2023-04-08 16:45 | NUR ---
PATIENT AFEBRILE. PATIENT IN SB TO SR, WITH FIRST DEGREE AV BLOCK, BBB AND OCCASIONAL PVCS. HR 50S TO 60S. SBP IN THE LOW 100S. NO OTHER ACUTE CHANGES AT THIS TIME. PATIENT DENIES CHEST PAIN OR PRESSURE. BED LOW, CALL LIGHT IN REACH.
--- NOTE | 2023-04-08 18:50 | NUR ---
SHIFT SUMMARY PATIENT REMAINED ALERT AND ORIENTED X 4, AFEBRILE. PATIENT HAD COMPLAINT OF CHEST DISCOMFORT OT THIS SHIFT AND REPORTED RELIEF WITH PRN 2 MG IV MORPHINE. NO COMPLAINTS OF PAIN OR DISCOMFORT SINCE. PATIENT REMAINED WEAK BUT ABLE TO MOVE ALL EXTREMITIES AND STAND UP TO USE URINAL. PATIENT REMAINED SATTING 90% AND GREATER ON RA WHILE AWAKE OR WHILE ON CPAP WHILE NAPPING. CPAP BROUGHT IN FROM HOME BY . PATIENT SB TO SR WITH FIRST DEGREE AV BLOCK, BBB AND OCCASIONAL PVCS. HR 50S TO 80S. SBP 80S TO 150S. SCDS PLACED. HEPARIN DC'D THIS SHIFT. GI WNL. NO BM THIS SHIFT. PATIENT HAD 700 MLS OF URINE OUTPUT THIS SHIFT. NO CHANGES TO SKIN NOTED. PATIENT REPOSITIONING SELF. ASSISTED PATIENT WITH BED BATH. PATIENT WAITING ON TRANSFER TO [facility] FOR TAVR. BED LOW, CALL LIGHT IN REACH. REPORT WILL BE GIVEN TO ASSUMING FEED MANAGEMENT ADVISOR NURSE SHORTLY.
--- NOTE | 2023-04-08 19:42 | NUR ---
ASSUMPTION OF CARE REPORT RECEIVED FROM DAY SHIFT RN. PATIENT RESTING IN BED AT TIME OF ASSESSMENT. CPAP IN PLACE. OXYGEN SATURATION >95% AT TIME OF ASSESSMENT. HR 60'S SINUS RHYTHM WITH 1ST DEGREE AV BLOCK AND PROLONGED QTC, BP WNL. PT IS ALERT AND ORIENTED X 4, MAKES APPROPRIATE CONVERSATION. PT IS ABLE TO STATE NEEDS. PIV TO RAC, PATENT. PT DENIES ANY CHEST PAIN OR DISCOMFORT. NO ACUTE NEEDS AT THIS TIME.
[2023-04-09] VITALS (42 sets, daily range): BP systolic 94–158; BP diastolic 50–85
[2023-04-09 03:56] LABS: BASOPHILS ABSOLUTE AUTO 0.04 K/mm3 (0.00-0.23); BASOPHILS PERCENT AUTO 1 % (0-2); EOSINOPHILS ABSOLUTE AUTO 0.32 K/mm3 (0.00-0.68); EOSINOPHILS PERCENT AUTO 5 % (0-6); Hematocrit 31.2 % (37.0-53.0); Hemoglobin 10.2 g/dL (13.5-17.5); IMMATURE GRAN ABSOLUTE AUTO 0.02 K/mm3 (0.00-0.10); IMMATURE GRAN PERCENT AUTO 0 % (0-1); LYMPHOCYTES ABSOLUTE AUTO 1.74 K/mm3 (0.84-5.20); LYMPHOCYTES PERCENT AUTO 26 % (21-46); MONOCYTES ABSOLUTE AUTO 0.58 K/mm3 (0.16-1.47); MONOCYTES PERCENT AUTO 9 % (4-13); Mean Corpuscular HGB 32.6 pg (26.0-34.0); Mean Corpuscular HGB Conc 32.7 g/dL (31.5-36.5); Mean Corpuscular Volume 100 fL (80-100); Mean Platelet Volume 11.6 fL (9.1-12.4); NEUTROPHILS ABSOLUTE AUTO 3.97 K/mm3 (1.96-9.15); NEUTROPHILS PERCENT AUTO 60 % (41-73); Platelet Count 160 K/mm3 (150-400); RDW Coefficient Variation 15.4 % (11.7-14.2); RDW Standard Deviation 56.3 fL (35.1-46.3); Red Blood Cell Count 3.13 M/mm3 (4.30-5.90); White Blood Cell Count 6.67 K/mm3 (4.00-11.30)
[2023-04-09 04:11] LABS: Bun/Creatinine Ratio 24.5 (12.0-20.0); Calcium, Blood 8.4 mg/dL (8.5-10.1); Creatinine, Blood 1.02 mg/dL (0.60-1.20); Potassium, Blood 4.2 mmol/L (3.5-5.5)
--- NOTE | 2023-04-09 04:55 | NUR ---
SHIFT SUMMARY PATIENT RESTING IN BED WITH CPAP IN PLACE, PT ALSO HAS NASAL CANULA IN PLACE AT 2LPM, OXYGEN SATURATION >95%. PT ALERT AND ORIENTED X 4, HOLDS APPROPRIATE CONVERSATION AND IS ABLE TO MAKE NEEDS KNOWN. HR 50-60'S SINUS RHYTHM WITH 1ST DEGREE BLOCK AND BBB, BLOOD PRESSURE WNL. PT USES URINAL WHEN NEEDED. PT HAD ONE EPISODE OF CHEST DISCOMFORT THROUGHOUT THE SHIFT, MEDICATED PER EMAR. NO ACUTE CHANGES THIS SHIFT.
--- NOTE | 2023-04-09 07:15 | NUR ---
DR. CRUZ BY TO SEE PATIENT. DOCTOR INFORMED THAT PATIENT GIVEN PRN IV MORPHINE OT ON PERFORATOR LOADER FOR COMPLAINTS OF CHEST PAIN. INFORMED THAT PATIENT ON 2 L NC AFTER MORPHINE TO KEEP SATS ABOVE 92%. INFORMED THAT PATIENT HAD 320 MLS OF URINE OUTPUT ON PERFORATOR LOADER. INFORMED THAT PATIENT ON LASIX AT HOME. NO ORDERS RECEIVED AT THIS TIME.
--- NOTE | 2023-04-09 08:00 | NUR ---
INITIAL ASSESSMENT PATIENT ALERT AND ORIENTED X 4, AFEBRILE. PATIENT DENIES PAIN INCLUDING CHEST PAIN OR PRESSURE. PATIENT SBA IN ROOM; PATIENT USES CANE. WEAK. LUNGS CLEAR THROUGHOUT. PATIENT DECREASED FROM 2 L NC TO RA AND REMAINS SATTING 90% AND GREATER. PATIENT ON HOME CPAP AT HS. PATIENT IN SR WITH FIRST DEGREE HB, BBB. HR IN THE 60S. SBP IN THE 120S. SCDS IN PLACE. GI AND WNL. SKIN APPEARS WNL. IVS FLUSHED AND SALINE LOCKED. BED LOW, CALL LIGHT IN REACH. AT BEDSIDE.
--- NOTE | 2023-04-09 09:45 | NUR ---
DR. ISSA HERE TO SEE PATIENT. INFORMED THAT PATIENT HAD COMPLAINTS OF CHEST PAIN OT ON TIRE TECHNICIAN AND THAT IT WAS RELIEVED WITH 4 MG IV MORPHINE. INFORMED THAT PATIENT HAD 320 MLS OF URINE OUT ON TIRE TECHNICIAN. INFORMED THAT PATIENT TAKES LASIX AT HOME AND IS WONDERING ABOUT TAKING IT HERE. NO ORDERS OBTAINED AT THIS TIME.
--- NOTE | 2023-04-09 11:55 | NUR ---
PATIENT AFEBRILE. HR IN THE 70S. SBP 120S TO 130S. PATIENT DENIES ANY PAIN OR DISCOMFORT. NO ACUTE CHANGES TO NOTE ON. BED LOW, CALL LIGHT IN REACH.
--- NOTE | 2023-04-09 16:00 | NUR ---
HR IN THE 70S. SBP 120S TO 140S. PATIENT AFEBRILE. PATIENT REMAINS SATTING 90% AND GREATER ON RA. NO ACUTE CHANGES TO NOTE ON.
--- NOTE | 2023-04-09 18:44 | NUR ---
SHIFT SUMMARY PATIENT HAS REMAINED ALERT AND ORIENTED X 4, AFEBRILE. NO COMPLAINTS OF PAIN OR DISCOMFORT THIS SHIFT INCLUDING CHEST PAIN OR PRESSURE. PATIENT SBA OUT OF BED. PATIENT REMAINED SATTING 90% AND GREATER ON RA AND WHILE ON CPAP WITH SLEEP. PATIENT REMAINED SR WITH FIRST DEGREE BLOCK AND BBB. HR 60S TO 80S. SBP 90S TO 140S. NO BM THIS SHIFT. PATIENT REMAINED WITH GOOD APPETITE. PATIENT HAD OUT 625 MLS OF URINE OUT THIS SHIFT. NO CHANGES TO SKIN NOTED. IN TO VISIT MULTIPLE TIMES THIS SHIFT. PATIENT MOVED FROM ICU 11 TO ICU 05; ALL BELONGINGS MOVED OVER WITH PATIENT. IN ROOM AT THIS TIME. BED LOW, CALL LIGHT IN REACH. REPORT WILL BE GIVEN TO ASSUMING SUPERVISOR RESIDENTIAL NURSE SHORTLY.
--- NOTE | 2023-04-09 18:53 | NUR ---
REPORT GIVEN TO JEWEL BLOCKER AND SAWYER NURSE.
--- NOTE | 2023-04-09 19:06 | NUR ---
ASSUMPTION OF CARE PT IS ALERT AND ORIENTED X4, VERY PLEASANT. DENY IS AT BEDSIDE. HE HAS HAD NO CHEST PAIN TODAY AND DENIES ANY PAIN/DISCOMFORT AT THIS TIME. HE IS IN GOOD SPIRITS. VSS AT THE CURRENT TIME. HE IS ON ROOM AIR.
[2023-04-10] VITALS (19 sets, daily range): BP systolic 120–154; BP diastolic 66–110
--- NOTE | 2023-04-10 00:45 | NUR ---
ASSUMED CARE OF PATIENT. PATIENT SLEEPING WITH HOME CPAP IN PLACE. NO COMPLAINTS AT THIS TIME
--- NOTE | 2023-04-10 03:00 | NUR ---
PATIENT AWAKE WITH NO COMPLAINTS. TRANSFER TO ICU 11 VIA BED.
[2023-04-10 03:31] LABS: BASOPHILS ABSOLUTE AUTO 0.03 K/mm3 (0.00-0.23); BASOPHILS PERCENT AUTO 1 % (0-2); EOSINOPHILS ABSOLUTE AUTO 0.32 K/mm3 (0.00-0.68); EOSINOPHILS PERCENT AUTO 5 % (0-6); Hematocrit 30.2 % (37.0-53.0); Hemoglobin 10.2 g/dL (13.5-17.5); IMMATURE GRAN ABSOLUTE AUTO 0.02 K/mm3 (0.00-0.10); IMMATURE GRAN PERCENT AUTO 0 % (0-1); LYMPHOCYTES ABSOLUTE AUTO 1.21 K/mm3 (0.84-5.20); LYMPHOCYTES PERCENT AUTO 20 % (21-46); MONOCYTES ABSOLUTE AUTO 0.51 K/mm3 (0.16-1.47); MONOCYTES PERCENT AUTO 8 % (4-13); Mean Corpuscular HGB 33.7 pg (26.0-34.0); Mean Corpuscular HGB Conc 33.8 g/dL (31.5-36.5); Mean Corpuscular Volume 100 fL (80-100); Mean Platelet Volume 11.9 fL (9.1-12.4); NEUTROPHILS ABSOLUTE AUTO 4.07 K/mm3 (1.96-9.15); NEUTROPHILS PERCENT AUTO 66 % (41-73); Platelet Count 133 K/mm3 (150-400); RDW Coefficient Variation 15.1 % (11.7-14.2); RDW Standard Deviation 55.8 fL (35.1-46.3); Red Blood Cell Count 3.03 M/mm3 (4.30-5.90); White Blood Cell Count 6.16 K/mm3 (4.00-11.30)
[2023-04-10 03:50] LABS: Albumin, Blood 3.3 g/dL (3.4-5.0); Anion Gap 5 mmol/L (6-16); Blood Urea Nitrogen 28 mg/dL (8-24); Bun/Creatinine Ratio 31.7 (12.0-20.0); CO2, Blood 24 mmol/L (21-32); Calcium, Blood 8.4 mg/dL (8.5-10.1); Chloride, Blood 115 mmol/L (98-108); Creatinine, Blood 0.88 mg/dL (0.60-1.20); Glomerular Filtration Rate 87 (60-); Glucose, Blood 140 mg/dL (70-99); Potassium, Blood 4.2 mmol/L (3.5-5.5); Sodium, Blood 144 mmol/L (136-145)
--- NOTE | 2023-04-10 07:00 | NUR ---
SUMMARY PATIENT SLEEPING OFF AND ON T/O NIGHT WITH HOME CPAP IN PLACE. USING URINAL AT BEDSIDE WITHOUT DIFFICULTY. VSS T/O NIGHT.
--- NOTE | 2023-04-10 08:06 | NUR ---
CARE OF PT ASSUMED AT 0700. PT AWAKE AND ALERT. PT C/O PAIN TO LEFT ARM UNDER BP CUFF, WHEN BP CUFF MOVED PAIN IMPROVED. PT ALSO C/O SOB AFTER GETTING UP AND USING URINAL, SOB RESOLVED WELL. PI IN SINUS W RATE 70'S, BP STABLE, AFEBRILE. AWAITING BED AT [facility] FOR TRANSFER.
--- NOTE | 2023-04-10 10:26 | NUR ---
PT CALLED FOR NURSE AND INITIALLY C/O MID EPIGASTRIC AREA PAIN, SHARP 5/10, WITHOUT PRESSURE. FENTANYL OFFERED AND DECLINED. PT STATED HE WANTED TO "WATCH" THE PAIN. WITHIN MINUTES PT CALLED AGAIN. PT THEN STATED THAT THERE HAD BEEN PRESSURE AND THAT THE PAIN WAS SUBSTERNAL AREA. PT ESCALATING, VOICE PRESSURED, STATES HE WILL TAKE HIS WIFES NITRO "IF WE DONT DO SOMETHING ABOUT PAIN". SITUATION DE-ESCULATED WITH CALM CLEAR COMMUNICATION. PT ASSURED THAT HIS PAIN WAS BEING TAKEN SERIOUSLY AND THAT MD HAD BEEN CALLED. FENTANYL OFFERED AGAIN, PT STATED THAT HE DID NOT UNDERSTAND THAT PAIN MEDS HAD BEEN OFFERED PRIOR. PT STATES HE IS HARD OF HEARING AND SOMETIMES DOES NOT UNDERSTAND INFORMATION. PT AGREED TO ASK QUESTIONS AND ASK TO REPEAT INFORMATION IF NEEDED. PT GIVEN FENTANYL 50MCG W GOOD EFFECT. DR WOLFF AND DR ISSA UPDATED. NO NEW ORDERS, WILL CONTINUE TO MONITOR. PT INSTRUCTED TO CALL WITH ANY NEW OR WRORSENING CHEST PAIN OR PRESSURE, SOB, NAUSEA, NEW SYMPTOMS.
--- NOTE | 2023-04-10 10:52 | NUR ---
PT STATES CHEST PAIN/PRESSURE IS NOW 0/10 PAIN. PT SITTING UP IN BED VISITING W /WATCHING TV
--- NOTE | 2023-04-10 12:40 | NUR ---
PT HAS ROOM AVAILABLE AT [id number].
--- NOTE | 2023-04-10 13:45 | NUR ---
AMBULANCE TRANSPORT AT BEDSIDE WITHIN MINUTES OF CALLING FOR TRANSPORT. REPORT CALLED TO MICK ADAMES AT [facility]. PT TOOK TWO BAGS OF BELONGINGS, INCLUDING HIS PHONE, TABLET, AND CPAP. PT'S TOOK TWO ADDITIONAL BAGS HOME. PT'S CANE LEFT, ATTEMPTED TO CALL AND LEAVE MESSAGE. WILL ATTEMPT TO CALL AGAIN. PT VERBALIZES THAT HE IS VERY HAPPY THAT A ROOM OPENED AT [facility]. PT ALSO VERBALIZED THANKFULNESS FOR [facility] STAFF AND THE CARE HE RECEIVED.
== END 2023-04-10 13:45 | disposition short-term general hospital (02) | DRG 281 ==
LOC: ER 20:55 → ERHOLD 20:56 → ICUE 04-08 07:07
PROVIDERS: Emergency Medicine; Family Medicine; Student in an Organized Health Care Education/Training Program; ADMIT Internal Medicine
DX: I35.0 Nonrheumatic aortic (valve) stenosis (principal); I21.4 Non-ST elevation (NSTEMI) myocardial infarction; I48.92 Unspecified atrial flutter; I10 Essential (primary) hypertension; E03.9 Hypothyroidism, unspecified; K58.9 Irritable bowel syndrome, unspecified; R07.9 Chest pain, unspecified; I48.0 Paroxysmal atrial fibrillation; D64.9 Anemia, unspecified; K59.00 Constipation, unspecified; I25.10 Atherosclerotic heart disease of native coronary artery without angina pectoris; K76.0 Fatty (change of) liver, not elsewhere classified; G47.33 Obstructive sleep apnea (adult) (pediatric); Z95.1 Presence of aortocoronary bypass graft; Z95.828 Presence of other vascular implants and grafts; I25.2 Old myocardial infarction; Z88.0 Allergy status to penicillin; Z88.8 Allergy status to other drugs, medicaments and biological substances; Z88.1 Allergy status to other antibiotic agents; Z79.899 Other long term (current) drug therapy; Z79.890 Hormone replacement therapy; Z87.442 Personal history of urinary calculi; Z98.890 Other specified postprocedural states; Z86.79 Personal history of other diseases of the circulatory system; Z99.89 Dependence on other enabling machines and devices
CPT/HCPCS: 36415; 71046; 71275; 80048; 80053; 80069; 84484; 85025; 85520; 85610; 93005; 93010; 94660; 96365; 96366; 96375; 96376; 99285-25; A9270; G0378; J1644; J2270; J3010; Q9967

== ENCOUNTER 2023-05-13 02:18 | Emergency (ER) | payer MEDICARE, OTHER ==
[~2023-05-13] VITALS: Ht 177.8 cm; Wt 91.3 kg
[~2023-05-13 02:18] MED LIST changes: +ASPIR 8181 M1 PO; +FURO40 PO
[2023-05-13 02:53] LABS: BASOPHILS ABSOLUTE AUTO 0.05 K/mm3 (0.00-0.23); BASOPHILS PERCENT AUTO 1 % (0-2); EOSINOPHILS ABSOLUTE AUTO 0.24 K/mm3 (0.00-0.68); EOSINOPHILS PERCENT AUTO 4 % (0-6); Hematocrit 37.6 % (37.0-53.0); Hemoglobin 12.8 g/dL (13.5-17.5); IMMATURE GRAN ABSOLUTE AUTO 0.02 K/mm3 (0.00-0.10); IMMATURE GRAN PERCENT AUTO 0 % (0-1); LYMPHOCYTES ABSOLUTE AUTO 2.28 K/mm3 (0.84-5.20); LYMPHOCYTES PERCENT AUTO 34 % (21-46); MONOCYTES ABSOLUTE AUTO 0.86 K/mm3 (0.16-1.47); MONOCYTES PERCENT AUTO 13 % (4-13); Mean Corpuscular HGB 33.2 pg (26.0-34.0); Mean Corpuscular Volume 97 fL (80-100); NEUTROPHILS ABSOLUTE AUTO 3.32 K/mm3 (1.96-9.15); NEUTROPHILS PERCENT AUTO 49 % (41-73); Platelet Count 159 K/mm3 (150-400); RDW Coefficient Variation 13.9 % (11.7-14.2); RDW Standard Deviation 49.4 fL (35.1-46.3); Red Blood Cell Count 3.86 M/mm3 (4.30-5.90); White Blood Cell Count 6.77 K/mm3 (4.00-11.30)
[2023-05-13 03:25] LABS: Albumin, Blood 4.4 g/dL (3.4-5.0); Albumin/Globulin Ratio 1.2 (0.8-1.8); Bilirubin, Total 0.4 mg/dL (0.1-1.0); Bun/Creatinine Ratio 30.6 (12.0-20.0); Calcium, Blood 9.3 mg/dL (8.5-10.1); Creatinine, Blood 0.98 mg/dL (0.60-1.20); Globulin, Blood 3.8 g/dL (2.2-4.0); Potassium, Blood 3.8 mmol/L (3.5-5.5); Total Protein, Blood 8.2 g/dL (6.4-8.2)
[2023-05-13 04:00] VITALS: BP 134/67
== END 2023-05-13 06:06 | disposition home or self-care (01) ==
LOC: ER 02:18
PROVIDERS: Student in an Organized Health Care Education/Training Program
DX: M79.89 Other specified soft tissue disorders (principal); L50.9 Urticaria, unspecified; I10 Essential (primary) hypertension; E03.9 Hypothyroidism, unspecified; Z95.3 Presence of xenogenic heart valve; Z79.899 Other long term (current) drug therapy; Z88.8 Allergy status to other drugs, medicaments and biological substances; Z88.0 Allergy status to penicillin; Z88.1 Allergy status to other antibiotic agents
CPT/HCPCS: 71046; 80053; 83880; 84484; 85025; 93005; 93010; 99284-25

== ENCOUNTER → 2023-08-31 | Outpatient (CLI) | payer MEDICARE ==
[~2023-08-31] MED LIST changes: +MIRALAX17 GM PO; +OXAYDO5 M1 PO; +Robaxin750 MG PO; +XARELTO20 MG PO
[2023-09-07 15:09] LABS: CALCIUM, URINE - PER 24H 209 mg/d (100-250); CALCIUM, URINE - PER VOLUME 11.6 mg/dL; CHLORIDE, URINE - PER 24H 162 mmol/d (140-250); CHLORIDE, URINE - PER VOLUME 90 mmol/L; CITRIC ACID, URINE - PER 24H 441 mg/d (320-1240); CITRIC ACID,URINE - PER VOLUME 245 mg/L; CREATININE, URINE - PER 24H 1566 mg/d (800-2100); CREATININE, URINE - PER VOLUME 87 mg/dL; HOURS COLLECTED 24 hr; MAGNESIUM, URINE - PER VOLUME 6.7 mg/dL; MAGNESIUM, URINE PER 24H 121 mg/d (12-199); OXALATE, URINE - PER 24H 27 mg/d (16-49); OXALATE, URINE - PER VOLUME 15 mg/L; PH, URINE 6.12 (5.00-7.50); PHOSPHORUS, URINE - PER 24H 1242 mg/d (400-1300); PHOSPHORUS, URINE - PER VOLUME 69 mg/dL; POTASSIUM, URINE - PER 24H 94 mmol/d (25-125); POTASSIUM, URINE - PER VOLUME 52 mmol/L; SODIUM, URINE - PER 24H 184 mmol/d (51-286); SODIUM, URINE - PER VOLUME 102 mmol/L; SULFATE, URINE - PER 24H 38 mmol/d (6-30); SULFATE, URINE - PER VOLUME 21 mmol/L; TOTAL VOLUME 1800 mL; URIC ACID, URINE - PER 24H 765 mg/d (250-750); URIC ACID, URINE - PER VOLUME 42.5 mg/dL; URINE SUPERSATURATION INTERP Abnormal; URINE SUPERSATURATION, CAHPO4 2.29; URINE SUPERSATURATION, CAOX 3.86; URINE SUPERSATURATION, UA CALC 0.49
== END ==
LOC: LAB 10:08 → LAB FUT 07-16 14:10 → LAB SHORT 07-16 14:10 → EDSTATUS 07-16 14:10
PROVIDERS: Physician Assistant
DX: N20.0 Calculus of kidney (principal)
CPT/HCPCS: 81003; 82131; 82140; 82340; 82436; 82507; 82570; 83735; 83935; 83945; 84105; 84133; 84300; 84392; 84560

== ENCOUNTER 2023-09-25 04:24 | Emergency (ER) | payer MEDICARE ==
[~2023-09-25] VITALS: Ht 177.8 cm; Wt 93.4 kg
[~2023-09-25 04:24] MED LIST changes: -MIRALAX17 GM PO; -OXAYDO5 M1 PO; -Robaxin750 MG PO
[2023-09-25] MEDS ORDERED: Methocarbamol 500 MG Tab PO ONE (04:45)
[2023-09-25] MEDS ORDERED: Acetaminophen 500 MG Tab PO ONE (04:50)
[2023-09-25] MEDS ORDERED: OxyCODONE HCL 5 MG TAB PO ONE (04:50)
[2023-09-25 05:07] LABS: Source, Urine Clean Catch
[2023-09-25 05:29] LABS: Appearance, Urine Clear (Clear); Bilirubin, Urine Neg (Neg); Blood, Urine 5+ (Neg); Color, Urine Yellow (P-Yellow); Glucose Qualitative, Urine Neg (Neg); Ketones, Urine Neg (Neg); Leukocyte Esterase, Urine Neg (Neg); Nitrite, Urine Neg (Neg); Protein, Urine Neg (Neg); Specific Gravity, Urine 1.015 (1.003-1.022); Urobilinogen, Urine NORM (Normal)
[2023-09-25] MEDS ORDERED: Robaxin750 MG PO (05:40)
[2023-09-25] MEDS ORDERED: OXAYDO5 M1 PO (05:40)
[2023-09-25 05:41] LABS: Bacteria Rare /hpf; Squamous Epithelial Cells Not Seen /hpf (Few)
[2023-09-25] MEDS ORDERED: MIRALAX17 GM PO (05:41)
[2023-09-25 05:45] VITALS: BP 142/79
== END 2023-09-25 05:52 | disposition home or self-care (01) ==
LOC: ER 04:24
PROVIDERS: Emergency Medicine
DX: N23 Unspecified renal colic (principal); U07.1 COVID-19; Z87.442 Personal history of urinary calculi; I10 Essential (primary) hypertension; E03.9 Hypothyroidism, unspecified; I25.2 Old myocardial infarction
CPT/HCPCS: 81001; 99284; A9270

== ENCOUNTER 2024-07-21 12:57 | Observation (INO) | payer MEDICARE, OTHER ==
[~2024-07-21] VITALS: Ht 177.8 cm; Wt 99.0 kg
[~2024-07-21 12:57] MED LIST changes: +ALBU90OI INH; +FUROSEMIDE20 MG PO; +IRBE75 PO; +ISOSORBIDE MONO30 MG PO; +MIRALAX17 GM PO; +NITR.4SL SL; +OXAYDO5 M1 PO; +OXYC5 PO; +PRED20 PO; +Prinivil10 MG PO; +Robaxin750 MG PO
[2024-07-21] MEDS ORDERED: Aspirin 325 MG Tab PO ONE (13:20)
[2024-07-21 13:54] LABS: BASOPHILS ABSOLUTE AUTO 0.03 K/mm3 (0.00-0.23); BASOPHILS PERCENT AUTO 1 % (0-2); EOSINOPHILS ABSOLUTE AUTO 0.13 K/mm3 (0.00-0.68); EOSINOPHILS PERCENT AUTO 2 % (0-6); Hematocrit 44.5 % (37.0-53.0); Hemoglobin 15.6 g/dL (13.5-17.5); IMMATURE GRAN ABSOLUTE AUTO 0.02 K/mm3 (0.00-0.10); IMMATURE GRAN PERCENT AUTO 0 % (0-1); LYMPHOCYTES ABSOLUTE AUTO 2.21 K/mm3 (0.84-5.20); LYMPHOCYTES PERCENT AUTO 37 % (21-46); MONOCYTES ABSOLUTE AUTO 0.57 K/mm3 (0.16-1.47); MONOCYTES PERCENT AUTO 10 % (4-13); Mean Corpuscular HGB 32.7 pg (26.0-34.0); Mean Corpuscular HGB Conc 35.1 g/dL (31.5-36.5); Mean Corpuscular Volume 93 fL (80-100); Mean Platelet Volume 10.9 fL (9.1-12.4); NEUTROPHILS ABSOLUTE AUTO 2.97 K/mm3 (1.96-9.15); NEUTROPHILS PERCENT AUTO 50 % (41-73); Platelet Count 149 K/mm3 (150-400); RDW Coefficient Variation 12.9 % (11.7-14.2); RDW Standard Deviation 43.9 fL (35.1-46.3); Red Blood Cell Count 4.77 M/mm3 (4.30-5.90); White Blood Cell Count 5.93 K/mm3 (4.00-11.30)
[2024-07-21 14:04] LABS: Bun/Creatinine Ratio 23.8 (12.0-20.0); Calcium, Blood 9.6 mg/dL (8.5-10.1); Creatinine, Blood 0.92 mg/dL (0.60-1.20); Magnesium, Blood 2.5 mg/dL (1.6-2.4); Potassium, Blood 3.8 mmol/L (3.5-5.5)
[2024-07-21] MEDS ORDERED: Ondansetron 4 MG TAB PO PRN (15:20)
[2024-07-21] MEDS ORDERED: Magnesium Hydroxide Conc 10 ML UDC PO PRN (15:20)
[2024-07-21] MEDS ORDERED: Ondansetron HCl 2 MG / ML 2ML Vial IV PRN (15:20)
[2024-07-21] MEDS ORDERED: Metoclopramide HCl 5MG / ML 2ML Vial IV PRN (15:20)
[2024-07-21] MEDS ORDERED: Bisacodyl 10 MG Supp PR PRN (15:25)
[2024-07-21] MEDS ORDERED: FLU VACC TS2024-25(6MOS UP)/PF 45 MCG/0.5 ML SYRINGE IM SCH (15:25)
[2024-07-21] MEDS ORDERED: TraZODone HCl 50 MG Tab PO PRN (15:25)
[2024-07-21] MEDS ORDERED: Nitroglycerin 0.4 MG SUBL SL PRN (15:40)
[2024-07-21] MEDS ORDERED: OxyCODONE HCL 5 MG TAB PO PRN (15:45)
[2024-07-21] MEDS ORDERED: Albuterol HFA200 ACT/6.7 GM INH INH PRN (15:50)
[2024-07-21] MEDS ORDERED: Heparin Sodium 5000 Units/ML 1ML MDV SC SCH (16:00)
[2024-07-21 18:16] VITALS: BP 150/84
--- NOTE | 2024-07-21 18:37 | NUR ---
SHIFT SUMMARY PT A NEW ADMIT THIS EVENING, NO ACUTE CHANGES SINCE THE ADMIT. NO COMPLAINTS FROM THE PT. TELE IN PLACE. FAMILY AT THE BS. PT IS INDEPENDENT IN THE ROOM. REPOSITIONS SELF IN BED. CALLS AND MAKES HIS NEEDS KNOWN. CALL LIGHT WITHIN REACH, BED LOCKED AND IN THE LOWEST POSITION. WILL REPORT TO ONCOMING NURSE.
[2024-07-21 19:44] VITALS: BP 141/61
[2024-07-21] MEDS ORDERED: Famotidine 20 MG Tab PO SCH (21:00)
[2024-07-22 02:43] VITALS: BP 155/78
--- NOTE | 2024-07-22 05:46 | NUR ---
SHIFT SUMMARY NOC PT A/O X 4. PLEASANT AND COOPERATIVE WITH CARE. VSS. DURING CHANGE OF SHIFT BEDSIDE REPORT, PT BEGAN TO HAVE HIGH ANXIETY ABOUT HOME CPAP MACHINE BEING DAMAGED AND HAD C/O OF DISCOMFORT IN CHEST AND SOB. NITRO GRABBED FROM [facility], BUT UPON RETURN PT HAD FIGURED OUT HOW TO REPAIR CPAP AND DISCOMFORT/SOB HAD SUBSIDED AND PT DECLINED NITRO. PT ON TELE SINUS RHYTHM/BBB/1DHB IN 60'S. PT CURRENTLY RESTING WITH CPAP/BIOX IN PLACE SPO2 >95%, BED IN LOWEST POSITION, AND CALL LIGHT WITHIN REACH.
[2024-07-22] MEDS ORDERED: Levothyroxine Sodium 0.112 MG Tab PO SCH (06:00)
[2024-07-22 06:11] LABS: BASOPHILS ABSOLUTE AUTO 0.04 K/mm3 (0.00-0.23); BASOPHILS PERCENT AUTO 1 % (0-2); EOSINOPHILS ABSOLUTE AUTO 0.19 K/mm3 (0.00-0.68); EOSINOPHILS PERCENT AUTO 4 % (0-6); Hematocrit 41.2 % (37.0-53.0); Hemoglobin 14.4 g/dL (13.5-17.5); IMMATURE GRAN ABSOLUTE AUTO 0.01 K/mm3 (0.00-0.10); IMMATURE GRAN PERCENT AUTO 0 % (0-1); LYMPHOCYTES ABSOLUTE AUTO 2.33 K/mm3 (0.84-5.20); LYMPHOCYTES PERCENT AUTO 45 % (21-46); MONOCYTES ABSOLUTE AUTO 0.54 K/mm3 (0.16-1.47); MONOCYTES PERCENT AUTO 10 % (4-13); Mean Corpuscular HGB 33.2 pg (26.0-34.0); Mean Corpuscular Volume 95 fL (80-100); Mean Platelet Volume 11.4 fL (9.1-12.4); NEUTROPHILS ABSOLUTE AUTO 2.12 K/mm3 (1.96-9.15); NEUTROPHILS PERCENT AUTO 41 % (41-73); Platelet Count 117 K/mm3 (150-400); RDW Coefficient Variation 13.1 % (11.7-14.2); RDW Standard Deviation 45.3 fL (35.1-46.3); Red Blood Cell Count 4.34 M/mm3 (4.30-5.90); White Blood Cell Count 5.23 K/mm3 (4.00-11.30)
[2024-07-22 06:48] LABS: Albumin, Blood 3.5 g/dL (3.4-5.0); Bilirubin, Total 0.3 mg/dL (0.1-1.0); Bun/Creatinine Ratio 27.9 (12.0-20.0); Calcium, Blood 8.9 mg/dL (8.5-10.1); Creatinine, Blood 0.75 mg/dL (0.60-1.20); Globulin, Blood 3.5 g/dL (2.2-4.0); Potassium, Blood 3.8 mmol/L (3.5-5.5)
[2024-07-22 07:29] VITALS: BP 174/82
[2024-07-22] MEDS ORDERED: Furosemide 40 MG Tab PO SCH (09:00)
[2024-07-22] MEDS ORDERED: NEBIVOLOL 2.5 MG PO SCH (09:00)
[2024-07-22] MEDS ORDERED: AmLODIPine Besylate 5 MG Tab PO SCH (09:00)
[2024-07-22] MEDS ORDERED: Aspirin 81 MG Chew PO SCH (09:00)
--- NOTE | 2024-07-22 09:00 | NUR ---
pt laying in bed, at bedside, a/ox4, pleasant and cooperative with care, follows commands well, denies pain at this time, lungs are clear t/o, on r/a, no cough noted, hrr, tele in place running sr with 1 degree block, see strip, no edema noted, ppp+2, cap refill< 3 sec, vs stable, afebrile, piv to rfa site is clear and patent, btx4, abd flat soft nontender, voids without diff, skin c/w/d, maew, jenn, call light in reach.
[2024-07-22] MEDS ORDERED: OXAYDO5 M1 PO (15:23)
[2024-07-22 15:44] VITALS: BP 172/86
--- NOTE | 2024-07-22 16:11 | NUR ---
Pt iv removed intact, left via wheelchair with spouce and head of visual merchandising in attendence with all belongings.
== END 2024-07-22 16:01 | disposition home or self-care (01) ==
LOC: ER 12:57 → MEDS 12:58
PROVIDERS: Emergency Medicine; ADMIT Internal Medicine
DX: I25.118 Atherosclerotic heart disease of native coronary artery with other forms of angina pectoris (principal); I25.2 Old myocardial infarction; K58.9 Irritable bowel syndrome, unspecified; E03.9 Hypothyroidism, unspecified; I11.0 Hypertensive heart disease with heart failure; I50.32 Chronic diastolic (congestive) heart failure; Z79.899 Other long term (current) drug therapy; Z88.0 Allergy status to penicillin; Z88.8 Allergy status to other drugs, medicaments and biological substances; G47.33 Obstructive sleep apnea (adult) (pediatric); I48.91 Unspecified atrial fibrillation; Z95.1 Presence of aortocoronary bypass graft
CPT/HCPCS: 36415; 71045; 71260; 80048; 80053; 83735; 83880; 84484; 85025; 85379; 93005; 93010; 94760; 94762; 96374; 96376; 99285-25; A9270; G0378; J1644; Q9967

== ENCOUNTER 2024-10-22 11:00 | Day surgery (SDC) | payer MEDICARE, OTHER ==
[~2024-10-22] VITALS: Ht 177.8 cm; Wt 93.9 kg
[~2024-10-22 11:00] MED LIST changes: +Lactated Ringer's 1,000 ML IV ONE
[2024-10-22] MEDS ORDERED: Lactated Ringer's 1,000 ML IV ONE (11:49)
[2024-10-22] MEDS ORDERED: propofoL 40 ML IV ONE (12:33)
[2024-10-22] MEDS ORDERED: Benzocaine Oral Spray 0.5ML UD ONE (12:35)
[2024-10-22 14:01] VITALS: BP 142/86
== END 2024-10-22 14:08 | disposition home or self-care (01) ==
LOC: ORSCSDS 11:00
PROVIDERS: Internal Medicine Gastroenterology
PROC: 0DBN8ZX Excision of Sigmoid Colon, Via Natural or Artificial Opening Endoscopic, Diagnostic (ICD-10-PCS; principal; 2024-10-22 12:15)
PROC: 0DBP8ZX Excision of Rectum, Via Natural or Artificial Opening Endoscopic, Diagnostic (ICD-10-PCS; principal; 2024-10-22 12:15)
PROC: 0DBM8ZX Excision of Descending Colon, Via Natural or Artificial Opening Endoscopic, Diagnostic (ICD-10-PCS; principal; 2024-10-22 12:15)
PROC: 0DB98ZX Excision of Duodenum, Via Natural or Artificial Opening Endoscopic, Diagnostic (ICD-10-PCS; principal; 2024-10-22 12:15)
PROC: 0DBK8ZX Excision of Ascending Colon, Via Natural or Artificial Opening Endoscopic, Diagnostic (ICD-10-PCS; principal; 2024-10-22 12:15)
PROC: 0DB68ZX Excision of Stomach, Via Natural or Artificial Opening Endoscopic, Diagnostic (ICD-10-PCS; principal; 2024-10-22 12:15)
PROC: 0DBL8ZX Excision of Transverse Colon, Via Natural or Artificial Opening Endoscopic, Diagnostic (ICD-10-PCS; principal; 2024-10-22 12:15)
DX: R19.4 Change in bowel habit (principal); D12.2 Benign neoplasm of ascending colon; D12.3 Benign neoplasm of transverse colon; D12.4 Benign neoplasm of descending colon; D12.5 Benign neoplasm of sigmoid colon; D12.8 Benign neoplasm of rectum; K22.2 Esophageal obstruction; K57.30 Diverticulosis of large intestine without perforation or abscess without bleeding; K64.8 Other hemorrhoids; Z80.0 Family history of malignant neoplasm of digestive organs; K29.70 Gastritis, unspecified, without bleeding; K44.9 Diaphragmatic hernia without obstruction or gangrene; R10.13 Epigastric pain; R11.0 Nausea; Z86.0101 Personal history of adenomatous and serrated colon polyps; R10.9 Unspecified abdominal pain; G47.33 Obstructive sleep apnea (adult) (pediatric); E03.9 Hypothyroidism, unspecified; F41.9 Anxiety disorder, unspecified; N40.0 Benign prostatic hyperplasia without lower urinary tract symptoms; I50.9 Heart failure, unspecified; I25.10 Atherosclerotic heart disease of native coronary artery without angina pectoris; I25.2 Old myocardial infarction; E11.22 Type 2 diabetes mellitus with diabetic chronic kidney disease; I12.9 Hypertensive chronic kidney disease with stage 1 through stage 4 chronic kidney disease, or unspecified chronic kidney disease; N18.2 Chronic kidney disease, stage 2 (mild); Z79.82 Long term (current) use of aspirin; Z79.899 Other long term (current) drug therapy
CPT/HCPCS: 82947; 88305; 88342; A9270; J2704; J7120

== ENCOUNTER 2025-01-05 10:25 | Emergency (ER) | payer MEDICARE, OTHER ==
[~2025-01-05] VITALS: Ht 177.8 cm; Wt 95.2 kg
[~2025-01-05 10:25] MED LIST changes: -Lactated Ringer's 1,000 ML IV ONE
[2025-01-05 10:57] LABS: BASOPHILS ABSOLUTE AUTO 0.03 K/mm3 (0.00-0.23); BASOPHILS PERCENT AUTO 1 % (0-2); EOSINOPHILS ABSOLUTE AUTO 0.17 K/mm3 (0.00-0.68); EOSINOPHILS PERCENT AUTO 3 % (0-6); Hematocrit 45.8 % (37.0-53.0); Hemoglobin 15.5 g/dL (13.5-17.5); IMMATURE GRAN ABSOLUTE AUTO 0.02 K/mm3 (0.00-0.10); IMMATURE GRAN PERCENT AUTO 0 % (0-1); LYMPHOCYTES ABSOLUTE AUTO 1.92 K/mm3 (0.84-5.20); LYMPHOCYTES PERCENT AUTO 35 % (21-46); MONOCYTES ABSOLUTE AUTO 0.46 K/mm3 (0.16-1.47); MONOCYTES PERCENT AUTO 8 % (4-13); Mean Corpuscular HGB 32.2 pg (26.0-34.0); Mean Corpuscular HGB Conc 33.8 g/dL (31.5-36.5); Mean Corpuscular Volume 95 fL (80-100); Mean Platelet Volume 11.5 fL (9.1-12.4); NEUTROPHILS ABSOLUTE AUTO 2.92 K/mm3 (1.96-9.15); NEUTROPHILS PERCENT AUTO 53 % (41-73); Platelet Count 114 K/mm3 (150-400); RDW Coefficient Variation 13.2 % (11.7-14.2); RDW Standard Deviation 46.5 fL (35.1-46.3); Red Blood Cell Count 4.81 M/mm3 (4.30-5.90); White Blood Cell Count 5.52 K/mm3 (4.00-11.30)
[2025-01-05 11:11] LABS: Bilirubin, Total 0.5 mg/dL (0.1-1.0); Bun/Creatinine Ratio 21.2 (12.0-20.0); Calcium, Blood 8.9 mg/dL (8.5-10.1); Creatinine, Blood 0.8 mg/dL (0.60-1.20); Potassium, Blood 3.8 mmol/L (3.5-5.5)
[2025-01-05 13:24] VITALS: BP 154/88
== END 2025-01-05 14:20 | disposition home or self-care (01) ==
LOC: ER 10:25
PROVIDERS: Student in an Organized Health Care Education/Training Program
DX: R07.89 Other chest pain (principal); I11.0 Hypertensive heart disease with heart failure; I50.30 Unspecified diastolic (congestive) heart failure; G47.33 Obstructive sleep apnea (adult) (pediatric); I48.91 Unspecified atrial fibrillation; E03.9 Hypothyroidism, unspecified; Z79.82 Long term (current) use of aspirin; Z79.899 Other long term (current) drug therapy; Z88.8 Allergy status to other drugs, medicaments and biological substances; Z88.6 Allergy status to analgesic agent; Z91.018 Allergy to other foods; Z88.0 Allergy status to penicillin; Z88.1 Allergy status to other antibiotic agents
CPT/HCPCS: 71046; 80053; 84484; 85025; 93005; 93010; 99285-25

== ENCOUNTER → 2025-03-10 | Outpatient (CLI) | payer MEDICARE, OTHER ==
[2025-03-10 15:46] LABS: Source, Urine Clean Catch
[2025-03-10 16:40] LABS: Red Blood Cells, Urine 0-2 /hpf (0-2); White Blood Cells, Urine 0-2 /hpf (0-5)
== END ==
LOC: LAB 15:38 → LAB SHORT 15:38
PROVIDERS: Urology
DX: N39.41 Urge incontinence (principal)
CPT/HCPCS: 81015; 87086